=== PATIENT | female | born 1970 | race Caucasian/White ===

== ENCOUNTER 2016-05-30 13:41 | Emergency (ER) | payer OTHER ==
[~2016-05-30 13:41] MED LIST: ALPRAZOLAM; ALPRAZOLAM PO; AMOXICILLIN875 MG PO; ASPIRIN81 MG; BAYER CHEWABLE81 MG PO; BENTYL10 M1 PO; BUSPAR15 M2 PO; CLONIDINE PO; CLONIDINE TOP; DIFLUCAN PO; FIORICET1 TAB PO; HYDROCHLOROTHIA25 MG PO; NEXIUM PO; NORCO1 TAB 10/3 PO; PHENERGAN SUPP25 MG PR; PHENERGAN25 M1 PO; PHENERGAN25 MG PO; PREVACID PO; PRILOSEC20 M1 PO; TOPROL XL; TOPROL XL 50 MG50 MG PO; TORADOL10 MG PO; VOLTAREN75 MG PO; XANAX0.5 M1 PO; ZOFRAN PO
== END 2016-05-30 14:12 | disposition home or self-care (01) ==
LOC: SED 13:41
DX: S01.312A Laceration without foreign body of left ear, initial encounter (principal); F41.9 Anxiety disorder, unspecified; W45.8XXA Other foreign body or object entering through skin, initial encounter; Y92.9 Unspecified place or not applicable
CPT/HCPCS: 99283

== ENCOUNTER 2016-10-10 18:29 | Emergency (ER) | payer OTHER ==
[~2016-10-10] VITALS: Ht 152.4 cm; Wt 49.9 kg
--- NOTE | ~2016-10-10 | EKG ---
PATIENT: FLOR FIELDS UNIT #: [id number] Ventricular Rate: 78 BPM Atrial Rate: 78 BPM P-R Interval: 158 ms QRS Duration: 66 ms Q-T Interval: 426 ms QTC Calculation(Bezet): 485 ms P [place]: 60 degrees Calculated R [place]: 32 degrees Calculated T [place]: 30 degrees Diagnosis Line: Normal sinus rhythm Diagnosis Line: Prolonged QT Diagnosis Line: Abnormal ECG Diagnosis Line: When compared with ECG of 28-DEC-2015 22:55, Diagnosis Line: No significant change was found Diagnosis Line: Confirmed by LISANDRA GAINES MD ([id number]) on Diagnosis Line: 10/12/2016 3:09:33 PM INTERPRETING MD: LIANA EWING
--- NOTE | ~2016-10-10 | CT52 ---
[facility] A Service [facility] RADIOLOGY TEXT RESULTS PATIENT: FLOR FIELDS LOCATION: SED : 66 UNIT #: [id number] AGE: [address]: Ashley Patel MD SEX: F ORDER DR: [id number] [place] [id number] E MR#: [id number] Acc #: [id number] NAME: FLOR FIELDS : 1970 SEX: F STUDY DATE/TIME: 10/10/2016 20:52 UNIT: SED ROOM: STUDY DESCRIPTION: CT Cervical Spine Wo Cont Attending Physician: Ashley Patel M.D. Ordering Physician: Ashley Patel M.D. Primary Care Physician: Bj Navas M.D. MEDICAL IMAGING REPORT This report is preliminary unless electronic signature is present. EXAM CT cervical spine. INDICATION Neck pain. Status post fall at home from a standing height. TECHNIQUE CT of the cervical spine without contrast. Coronal and sagittal reconstructions were obtained. This CT exam was performed with one or more of the following radiation dose reduction techniques: automatic exposure control, adjustment of mA and/or kV according to patient size, and iterative reconstruction. COMPARISON CT cervical spine dated 03/25/2015. FINDINGS There is no acute fracture or subluxation. Vertebral body height and alignment is within normal limits. The craniocervical junction and atlantoaxial articulations are within normal limits. Prevertebral soft tissues are normal. IMPRESSION No acute traumatic findings in the cervical spine. Dictated by... Jan Pineda M.D. THIS IS AN ELECTRONICALLY VERIFIED REPORT [facility] A Service [facility] RADIOLOGY TEXT RESULTS PATIENT: FLOR FIELDS LOCATION: SED : [birth year] UNIT #: [id number] AGE: [address]: Ashley Patel MD SEX: F ORDER DR: Jan Pineda M.D. at 10/11/2016 7:52 PM DARSHANA/lisa TD: 10/11/2016 19:05 JOB #: [id number] MEDICAL IMAGING REPORT Page 1 of 1
--- NOTE | ~2016-10-10 | CT71 ---
[facility] A Service [facility] RADIOLOGY TEXT RESULTS PATIENT: FLOR FIELDS LOCATION: SED : [birth year] UNIT #: [id number] AGE: [address]: Ashley Patel MD SEX: F ORDER DR: [id number] [address] [address] [id number] E MR#: [id number] Acc #: [id number] NAME: FLOR FIELDS : 1970 SEX: F STUDY DATE/TIME: 10/10/2016 20:52 UNIT: SED ROOM: STUDY DESCRIPTION: CT Head Wo Contrast Attending Physician: Ashley Patel M.D. Ordering Physician: Ashley Patel M.D. Primary Care Physician: Bj Navas M.D. MEDICAL IMAGING REPORT This report is preliminary unless electronic signature is present. EXAM CT of the head INDICATIONS Slurred speech. Severe headache. Neck stiffness. Fall at home. Fall to the floor. TECHNIQUE CT of the head without contrast. This CT exam was performed with one or more of the following radiation dose reduction techniques: Automatic exposure control, adjustment of mA and/or kV according to patient size, and iterative reconstruction. COMPARISON CT head 07/08/2015. FINDINGS Axial noncontrast images were obtained from the skull base to the vertex. Ventricular size and configuration are normal. There is no evidence of acute infarct or hemorrhage. There are no extraaxial fluid collections. No mass lesion or mass effect is seen. There are no skull fractures. IMPRESSION Normal noncontrast head CT. Dictated by... Jan Pineda M.D. THIS IS AN ELECTRONICALLY VERIFIED REPORT Jan Pineda M.D. at 10/11/2016 7:51 PM [facility] A Service [facility] RADIOLOGY TEXT RESULTS PATIENT: FLOR FIELDS LOCATION: SED : [birth year] UNIT #: [id number] AGE: [address]: Ashley Patel MD SEX: F ORDER DR: TD: 10/11/2016 19:01 JOB #: [id number] MEDICAL IMAGING REPORT Page 1 of 1
--- NOTE | ~2016-10-10 | CR72 ---
[facility] A Service [facility] RADIOLOGY TEXT RESULTS PATIENT: FLOR FIELDS LOCATION: SED : [birth year] UNIT #: [id number] AGE: [address]: Ashley Patel MD SEX: F ORDER DR: [id number] [place] [id number] E MR#: [id number] Acc #: [id number] NAME: FLOR FIELDS : 1970 SEX: F STUDY DATE/TIME: 10/10/2016 20:41 UNIT: SED ROOM: STUDY DESCRIPTION: CR Chest Single View Portable Attending Physician: Ashley Patel M.D. Ordering Physician: Ashley Patel M.D. Primary Care Physician: Bj Navas M.D. MEDICAL IMAGING REPORT This report is preliminary unless electronic signature is present. EXAM Single view chest. INDICATIONS Slurred speech. Facial swelling. Headache. FINDINGS Single portable AP view of the chest compared to 03/31/2015. Heart and mediastinal contours are unchanged. The lungs are clear. No pleural effusion. IMPRESSION No acute cardiopulmonary findings. Dictated by... Jan Pineda M.D. THIS IS AN ELECTRONICALLY VERIFIED REPORT Jan Pineda M.D. at 10/11/2016 7:51 PM DARSHANA/bianca TD: 10/11/2016 18:58 JOB #: [id number] MEDICAL IMAGING REPORT Page 1 of 1
--- NOTE | ~2016-10-10 | CT101 ---
[facility] A Service [facility] RADIOLOGY TEXT RESULTS PATIENT: FLOR FIELDS LOCATION: SED : [birth year] UNIT #: [id number] AGE: [address]: Ashley aPtel MD SEX: F ORDER DR: [id number] [address] [address] [id number] E MR#: [id number] Acc #: [id number] NAME: FLOR FIELDS : 1970 SEX: F STUDY DATE/TIME: 10/10/2016 20:52 UNIT: SED ROOM: STUDY DESCRIPTION: CT Maxillofacial Area Wo Cont Attending Physician: Ashley Patel M.D. Ordering Physician: Ashley Patel M.D. Primary Care Physician: Bj Navas M.D. MEDICAL IMAGING REPORT This report is preliminary unless electronic signature is present. EXAM Maxillofacial CT without contrast. INDICATIONS Fall at home. Facial swelling. Neck stiffness. TECHNIQUE Maxillofacial CT without contrast. Coronal reconstructions were obtained. This CT exam was performed with one or more of the following radiation dose reduction techniques: Automatic exposure control, adjustment of mA and/or kV according to patient size, and iterative reconstruction. COMPARISON None available. FINDINGS There is abrupt angulation into the inferior aspect of the anterior left antral wall. There is no associated soft tissue swelling or hemorrhage. This is probably old injury, however confirmation with lack of point tenderness is recommended. The visualized paranasal sinuses are clear. Orbits are unremarkable. There is a hematoma associated with the anterior mandible. The temporomandibular joints are within normal limits. IMPRESSION 1. Soft tissue hematoma overlying the chin. No foreign body. 2. Acute angulation of the inferior aspect of the anterior antral wall. This is probably an old injury as there is no hematoma in this area and there is no blood within the maxillary sinus. Please confirm with clinical history and lack of point tenderness in this area. Dictated by... Jan Pineda M.D. [facility] A Service [facility] RADIOLOGY TEXT RESULTS PATIENT: FLOR FIELDS [place] [facility] [place] [birth year] [place]IT #: [id number] AGE: [address]: Ashley Patel MD SEX: F ORDER DR: THIS IS AN ELECTRONICALLY VERIFIED REPORT Jan Pineda M.D. at 10/11/2016 7:51 PM RPFaisal/bianca TD: 10/11/2016 19:00 JOB #: [id number] MEDICAL IMAGING REPORT Page 1 of 1
[2016-10-10 19:41] LABS: BASOPHIL# 0.1 X10e3 (0-0.3); BASOPHIL% 1.4 % (0-2.5); EOSINOPHIL# 0.1 X10e3 (0-0.7); EOSINOPHIL% 2.1 % (0.0-7.0); HEMATOCRIT 34.6 % (35.0-45.0); HEMOGLOBIN 11.8 gm/dL (12.0-16.0); LYMPHOCYTE# 1.5 X10e3 (1.0-3.5); LYMPHOCYTE% 33.7 % (17.0-45.0); MEAN CELL VOLUME 109.9 FL (83-96); MEAN CORPUSCULAR HEMOGLOBIN 37.5 PG (28-34); MEAN CORPUSCULAR HGB CONC 34.1 g/dL (30-36); MEAN PLATELET VOLUME 7.3 FL (6.5-11.5); MONOCYTE# 0.5 X10e3 (0-1.0); MONOCYTE% 11.4 % (3.0-12.0); NEUTROPHIL# 2.3 X10e3 (1.5-7.1); NEUTROPHIL% 51.4 % (40-75); PLATELET COUNT 232 X10e3 (140-420); RED BLOOD COUNT 3.15 X10e (3.90-5.30); RED CELL DISTRIBUTION WIDTH 16.4 % (11.0-15.5); WHITE BLOOD COUNT 4.4 X10e3 (4.0-10.5)
[2016-10-10 19:44] LABS: PROTHROMBIN TIME (PATIENT) 11.6 SECONDS (9.5-12.4)
[2016-10-10 19:45] LABS: DIFF IND NO
[2016-10-10 19:51] LABS: PARTIAL THROMBOPLASTIN TIME 33.2 SECONDS (25.6-38.1)
[2016-10-10 20:09] LABS: ALKALINE PHOSPHATASE 62 U/L (32-92); ALT (SGPT) 32 U/L (10-40); AST (SGOT) 49 U/L (10-42); BILIRUBIN, DIRECT <0.1 mg/dL (0.0-0.2); BILIRUBIN,INDIRECT 0.2 mg/dL (0.0-0.9); BILIRUBIN,TOTAL 0.3 mg/dL (0.2-2.0); BLOOD UREA NITROGEN 11 mg/dL (9-23); CALCIUM SERUM 8.4 mg/dL (8.4-10.2); CARBON DIOXIDE 27 mmol/L (22-31); CHLORIDE 109 mmol/L (100-111); CPK (CREATINE PHOSPHOKINASE) 183 IU/L (26-140); CREATININE SERUM 0.5 mg/dL (0.6-1.4); GLOM FILT RATE Estimated 114.5 mL/min (>60); GLUCOSE FASTING 87 mg/dL (70-110); POTASSIUM 3.4 mmol/L (3.5-5.1); SODIUM 146 mmol/L (135-145)
[2016-10-10 20:10] LABS: ALCOHOL BLOOD 379 mg/dL (0)
[2016-10-10 20:17] LABS: MICRO INDICATED? YES; URINE APPEARANCE CLEAR; URINE BILIRUBIN NEG (NEG); URINE BLOOD TRACE-LYSED (NEG); URINE COLOR YELLOW; URINE GLUCOSE NEG (NORM); URINE KETONE NEG (NEG); URINE LEUKOCYTE ESTERASE NEG (NEG); URINE NITRATE NEG (NEG); URINE PROTEIN NEG (NEG); URINE SOURCE CLEAN CATCH; URINE SPECIFIC GRAVITY <=1.005 (1.003-1.035); URINE UROBILINOGEN 0.2 MG/DL (NORM)
[2016-10-10 20:22] LABS: CULTURE INDICATED? NO; URINE BACTERIA NEG (NEG); URINE SQUAMOUS EPITHELIAL CELL FEW /[HPF]; URINE WBC 0-2 /[HPF] (0-5)
[2016-10-10 20:26] LABS: AMPHETAMINE NEG (NEG); BARBITURATES NEG (NEG); BENZODIAZEPINES POS (NEG); COCAINE NEG (NEG); MARIJUANA NEG (NEG); OPIATES NEG (NEG); TRICYCLIC ANTIDEPRESSANTS NEG (NEG); U METHADONE NEG (NEG)
[2016-10-10 22:08] LABS: POC - CKMB 4.4 ng/mL (0.0-7.9); POC - TROPONIN <0.05 ng/mL (<=0.05)
[2016-10-14 15:37] LABS: POC - CKMB 6.6 ng/mL (0.0-7.9); POC - TROPONIN <0.05 ng/mL (<=0.05)
== END 2016-10-10 22:47 | disposition home or self-care (01) ==
LOC: SED 18:29
PROVIDERS: Emergency Medicine
DX: S00.83XA Contusion of other part of head, initial encounter (principal); K21.9 Gastro-esophageal reflux disease without esophagitis; I10 Essential (primary) hypertension; F17.200 Nicotine dependence, unspecified, uncomplicated; Z88.8 Allergy status to other drugs, medicaments and biological substances; Z79.899 Other long term (current) drug therapy; W20.8XXA Other cause of strike by thrown, projected or falling object, initial encounter; Y92.098 Other place in other non-institutional residence as the place of occurrence of the external cause
CPT/HCPCS: 36415; 70450; 70486; 71010; 72125; 80048; 80076; 80307; 81003; 82550; 82553; 83605; 84484; 85025; 85610; 85730; 90715; 93005; 99284; G0480